=== PATIENT | female | born 1960 | race Caucasian/White ===

== ENCOUNTER → 2017-01-18 | Outpatient (CLI) | payer MEDICARE, MEDICAID ==
[~2017-01-18] MED LIST: ATIVAN1 MG PO; AVPAK AZITHROM250 MG PO; CITALOPRAM40 MG PO; DELESTROGEN20 MG/ML IM; DOXYCYCLINE HY100 M1 PO; DOXYCYCLINE IJ; HYDROXYZINE10 MG PO; IPRATROPIUM BROM3 M1 IN; KEFLEX 500MG.500 MG PO; LYRICA200 MG PO; MAGMTHWSH PO; MEDROL 4MG. DOSE4 MG PO; NICOTINE PATCH;21 MG TD; OMEPRAZOLE20 MG PO; OXYCODON-ACETAMINOPH OR; PERCOCET 10 MG1 EACH PO; PERCOCET 325 MG1 TA3 PO; PHENERGAN 25MG.25 M1 PO; PHENERGAN25 M3 PO; PREDNISONE 20MG20 MG PO; TRAZODONE HCL50 MG PO; ZOFRAN4 MG PO; [UNRECOGNIZED DRUG - OTHER] IJ
--- NOTE | 2017-01-26 07:42 | RADIOLOGY REPORT PS360 ---
DIG MAMM-SCREEN GABRIELA W/CAD CAD Screening COMPARISON: Digital mammograms 12/13/2010 INDICATION: There is a history of breast cancer in the patient's aunt. TECHNIQUE: Standard CC and MLO images were obtained. R2 CAD reviewed. FINDINGS: Moderate diffuse fibroglandular densities are seen throughout both breasts and the findings are bilateral and symmetrical. There are couple of benign-appearing calcifications right breast. There is no suspicious lesion and there are no suspicious microcalcifications. IMPRESSION: Fibrofatty parenchyma no suspicious lesion seen recommend yearly follow-up BI-RADS CATEGORY: 2_Benign RECOMMENDED FOLLOWUP: 12M 12 MONTH FOLLOW-UP (A letter has been sent to the patient regarding results of the study.)
== END ==
LOC: RAD 08:50
DX: Z12.31 Encounter for screening mammogram for malignant neoplasm of breast (principal)
CPT/HCPCS: G0202